=== PATIENT | male | born 1965 | race Caucasian/White ===

== ENCOUNTER 2017-08-19 14:56 | Inpatient (IN) | payer OTHER ==
[~2017-08-19] VITALS: Ht 182.9 cm; Wt 68.7 kg
[~2017-08-19 14:56] MED LIST: CITRATE OF MAG296 ML PO; COLACE100 MG PO; CREON DR 36,001 EACH PO; IBUPROFEN 800800 M1 PO; LANTUS SOL100 UNIT/1 SQ; NORCO 5-325 TA1 EACH PO; ONDANSETRON HCL4 M2 PO; PHENERGAN 25 MG25 M1 PO; PROMS25 WY RECTAL; PROTONIX40 MG PO; [UNRECOGNIZED DRUG - OTHER] SUBQ
[2017-08-19 15:33] VITALS: BP 135/77
[2017-08-19] MEDS ORDERED: PROTONIX40 M1 PO (15:51)
[2017-08-19 16:08] LABS: ABSOLUTE NEUTROPHILS 4.5 thou/uL (1.4-8.2); BASOPHILS 0.7 % (0.0-2.0); EOSINOPHILS 2.2 % (0.0-3.0); HEMATOCRIT 38.8 % (42.0-52.0); HEMOGLOBIN 12.2 gm/dL (14.0-18.0); LYMPHOCYTES 20.5 % (24.0-44.0); MCH 29.4 pg (26.0-34.0); MCHC 31.4 g/dL (28.0-37.0); MCV 93.5 fL (80.0-100.0); MONOCYTES 5.1 % (1.0-8.0); PLATELET COUNT 200 thou/uL (150-400); POLYS 71.5 % (36.0-66.0); RBC 4.15 mil/uL (4.50-6.00); RDW 15.9 % (10.5-14.5); WBC 6.2 thou/uL (4.0-11.0)
[2017-08-19 16:11] LABS: MANUAL DIFF NO
[2017-08-19 16:20] LABS: CALCIUM 8.2 mg/dL (8.5-10.1); CREATININE 1.7 mg/dL (0.7-1.3)
[2017-08-19 16:22] LABS: PROTIME 9.9 Seconds (9.3-11.4)
[2017-08-19 16:24] LABS: ALBUMIN 3.5 g/dL (3.4-5.0); TOTAL BILIRUBIN 0.2 mg/dL (<0.1-1.0); TOTAL PROTEIN 6.9 g/dL (6.4-8.2)
[2017-08-19 16:35] LABS: POTASSIUM 6.3 mmol/L (3.5-5.1)
[2017-08-19 17:50] LABS: ABG SAMPLE TYPE VENOUS; BE(vivo) -3.9 mmol/L (-2 to +3); HCO3 21.5 mmol/L (22.0-26.0); LACTATE 2.58 mmol/L (0.5-2.0); O2(CT) 16.1 mL/dL (15.0-23.0); O2Hb VENOUS 89.6 (65.0-85.0); PCO2 VENOUS 40.3 mmHg (41.0-51.0); PO2 VENOUS 90.3 mmHg (35.0-45.0); STICK SITE LINE; sO2 VENOUS 96.5 % (65.0-85.0); tCO2 22.7 mmol/L (24.0-30.0)
[2017-08-19 18:17] VITALS: BP 140/89
[2017-08-19 19:00] VITALS: BP 140/89
[2017-08-19 19:29] VITALS: BP 131/74
[2017-08-19] MEDS ORDERED: NORCO 10-325 T1 EACH PO (21:16)
[2017-08-19] MEDS ORDERED: IRON325 PO (21:17)
[2017-08-19] MEDS ORDERED: NEURONTIN 300300 M1 PO (21:18)
[2017-08-19] MEDS ORDERED: BUPROPION XL150 MG PO (21:21)
[2017-08-19] MEDS ORDERED: XANAX1 MG PO (21:22)
[2017-08-19 23:59] VITALS: BP 105/66
[2017-08-20 04:08] LABS: GLYCOHEMOGLOBIN (HGB A1C) 9.4 % (4.8-5.6)
[2017-08-20 04:09] VITALS: BP 110/68
[2017-08-20 06:09] LABS: ABSOLUTE NEUTROPHILS 4.5 thou/uL (1.4-8.2); BASOPHILS 0.7 % (0.0-2.0); EOSINOPHILS 4.6 % (0.0-3.0); HEMATOCRIT 34.6 % (42.0-52.0); HEMOGLOBIN 11.4 gm/dL (14.0-18.0); LYMPHOCYTES 27.9 % (24.0-44.0); MCH 29.7 pg (26.0-34.0); MCHC 32.9 g/dL (28.0-37.0); MCV 90.2 fL (80.0-100.0); PLATELET COUNT 182 thou/uL (150-400); POLYS 57.8 % (36.0-66.0); RBC 3.84 mil/uL (4.50-6.00); RDW 15.6 % (10.5-14.5); WBC 7.8 thou/uL (4.0-11.0)
[2017-08-20 06:10] LABS: MANUAL DIFF NO
[2017-08-20 06:24] LABS: CALCIUM 8.3 mg/dL (8.5-10.1); CREATININE 0.8 mg/dL (0.7-1.3)
[2017-08-20 07:16] VITALS: BP 101/67
== END 2017-08-20 15:26 | disposition home or self-care (01) | DRG 392 ==
LOC: ER 14:56 → EROBS 17:37 → 4S 19:00
PROVIDERS: Family Medicine; Physician Assistant
DX: R10.84 Generalized abdominal pain (principal); F41.0 Panic disorder [episodic paroxysmal anxiety]; E87.5 Hyperkalemia; E11.65 Type 2 diabetes mellitus with hyperglycemia; F17.210 Nicotine dependence, cigarettes, uncomplicated; K59.00 Constipation, unspecified; Z90.49 Acquired absence of other specified parts of digestive tract; Z79.4 Long term (current) use of insulin; Z79.899 Other long term (current) drug therapy; Z88.0 Allergy status to penicillin; Z87.11 Personal history of peptic ulcer disease
CPT/HCPCS: 10100

== ENCOUNTER 2019-01-30 10:20 | Emergency (ER) | payer OTHER ==
[~2019-01-30] VITALS: Ht 182.9 cm; Wt 70.3 kg
[~2019-01-30 10:20] MED LIST changes: +BUPROPION XL150 MG PO; +IRON325 PO; +NEURONTIN 300300 M1 PO; +NORCO 10-325 T1 EACH PO; +PROTONIX40 M1 PO; +XANAX1 MG PO
[2019-01-30 11:19] LABS: ABSOLUTE NEUTROPHILS 5.9 thou/uL (1.4-8.2); BASOPHILS 0.6 % (0.0-2.0); EOSINOPHILS 2.8 % (0.0-3.0); HEMATOCRIT 44.7 % (42.0-52.0); HEMOGLOBIN 15.3 gm/dL (14.0-18.0); LYMPHOCYTES 21.4 % (24.0-44.0); MCH 30.6 pg (26.0-34.0); MCHC 34.2 g/dL (28.0-37.0); MCV 89.5 fL (80.0-100.0); MONOCYTES 7.4 % (1.0-8.0); PLATELET COUNT 174 thou/uL (150-400); POLYS 67.8 % (36.0-66.0); RBC 4.99 mil/uL (4.50-6.00); WBC 8.7 thou/uL (4.0-11.0)
[2019-01-30 11:22] LABS: CALCIUM 9.2 mg/dL (8.5-10.1); POTASSIUM 4.2 mmol/L (3.5-5.1)
[2019-01-30 11:28] LABS: ALBUMIN 3.5 g/dL (3.4-5.0); TOTAL BILIRUBIN 0.3 mg/dL (<0.1-1.0); TOTAL PROTEIN 7.3 g/dL (6.4-8.2)
[2019-01-30 12:41] VITALS: BP 114/76
[2019-01-30] MEDS ORDERED: KEFLEX500 M1 PO (12:52)
[2019-01-30] MEDS ORDERED: ULTRAM 50MG TAB50 MG PO (13:05)
== END 2019-01-30 13:12 | disposition home or self-care (01) ==
LOC: ER 10:20
PROVIDERS: Physician Assistant
DX: S91.302A Unspecified open wound, left foot, initial encounter (principal); E11.9 Type 2 diabetes mellitus without complications; F41.0 Panic disorder [episodic paroxysmal anxiety]; Z88.0 Allergy status to penicillin; Z94.9 Transplanted organ and tissue status, unspecified; X58.XXXA Exposure to other specified factors, initial encounter; Y92.89 Other specified places as the place of occurrence of the external cause; Y93.89 Activity, other specified; Y99.8 Other external cause status